=== PATIENT | female | born 1990 | race Two or more races ===

== ENCOUNTER 2016-04-27 14:13 | Emergency (ER) | payer MEDICAID ==
[~2016-04-27] VITALS: Ht 165.1 cm; Wt 52.2 kg
[2016-04-27] MEDS ORDERED: ACETAMINOPHEN ES 500 MG TABLET ONE ×2 (14:38→14:41)
[2016-04-27] MEDS ORDERED: IBUPROFEN 400 MG TABLET ONE ×2 (14:38→14:41)
[2016-04-27 14:51] VITALS: BP 115/70
[2016-04-27] MEDS ORDERED: ACETAMINOPHEN ES 500 MG TABLET PO ONE (15:00)
[2016-04-27] MEDS ORDERED: IBUPROFEN 400 MG TABLET PO ONE (15:00)
== END 2016-04-27 14:52 | disposition home or self-care (01) ==
LOC: ER 14:15
DX: M79.641 Pain in right hand (principal); M79.642 Pain in left hand
CPT/HCPCS: 99283; A4606; Z7610

== ENCOUNTER 2016-05-15 02:29 | Emergency (ER) | payer MEDICAID ==
[~2016-05-15] VITALS: Ht 165.1 cm; Wt 54.4 kg
[2016-05-15] MEDS ORDERED: ONDANSETRON HCL/PF 4 MG/2 ML VIAL ONE (03:05)
[2016-05-15] MEDS ORDERED: IV NS 0.9% 1,000 ML BAG IV ONE (03:30)
[2016-05-15] MEDS ORDERED: ONDANSETRON HCL/PF 4 MG/2 ML VIAL IV ONE (03:30)
[2016-05-15] MEDS ORDERED: IV SET PRIMARY 1 EA INFUS.SET MC ONE (03:34)
[2016-05-15] MEDS ORDERED: IV NS 0.9% 1,000 ML ONE (03:34)
[2016-05-15 05:25] VITALS: BP 127/64
== END 2016-05-15 05:26 | disposition home or self-care (01) ==
LOC: ER 02:31
DX: F10.129 Alcohol abuse with intoxication, unspecified (principal); R51 Headache; R79.89 Other specified abnormal findings of blood chemistry
CPT/HCPCS: 70450; 82962; 96361; 96374; 99284; A4606; J2405; J7030; Z7610